=== PATIENT | male | born 1990 | race Caucasian/White ===

== ENCOUNTER 2017-02-04 14:08 | Emergency (ER) | payer SELFPAY ==
[2017-02-04 14:13] VITALS: BP 156/80; PULSE 77; RESP 12; TEMP 98.3; O2SAT 98
--- NOTE | 2017-02-04 15:03 | RADRPT ---
EXAM DATE/TIME: 02/04/2017 14:48 [place] COMPARISON: No previous studies available for comparison. INDICATIONS : Cough for 1 month. Coughing up black mucus for 1 month. MEDICAL HISTORY : None. SURGICAL HISTORY : None. ENCOUNTER: Initial ACUITY: 1 month PAIN SCORE: 0/10 LOCATION: Bilateral chest FINDINGS: PA and lateral views of the chest demonstrate the lungs to be symmetrically aerated without evidence of mass, infiltrate or effusion. The cardiomediastinal contours are unremarkable. Osseous structure s are intact. CONCLUSION: 1. No acute cardiopulmonary disease. Desmond Branch MD on February 04, 2017 at 15:01 Board Certified Radiologist. This report was verified electronically.
--- NOTE | 2017-02-04 15:29 | PD ---
HPI Chief Complaint: Cold / Flu Symptoms Time Seen by Provider: 15:18 Travel History International Travel<30 days: No Contact w/Intl Traveler<30days: No Traveled to known affect area: No History of Present Illness HPI 26-year-old male presents to emergency department complaining of cough, congestion, nasal congestion for approximately 1 month. States he is also wheezing and has sneezing. States he does have a productive cough, described as dark and green mucus. He does smoke approx 1PPD. He also has a history of asthma. He has not used any OTCs. 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 He has a childhood history of asthma but denies any other medical issues this time. He has been trying to quit smoking. Patient denies fever, chills, chest pain, shortness of breath, abdominal pain. PFSH Social History Tobacco Use: Yes (1PPD) Allergies-Medications (Allergen,Severity, Reaction): Coded Allergies: No Known Allergies (Unverified , 02/04/17) Reported Meds & Prescriptions Reported Meds & Active Scripts Active Tessalon Perles (Benzonatate) 100 Mg Cap 100 Mg PO TID PRN 5 Days Ventolin Hfa 18 GM Inh (Albuterol Sulfate) 90 Mcg/Act Aer 2 Puff INH Q4-6H PRN Medrol Dosepak (Methylprednisolone) 4 Mg Dspk 4 Mg PO DIRECTED Per Pharmacist direction Review of Systems Except as stated in HPI: all other systems reviewed are Neg Physical Exam Narrative GENERAL: Well-developed well-nourished in no apparent distress frequently coughing without production. SKIN: Focused skin assessment warm/dry. HEAD: Atraumatic. Normocephalic. EYES: Pupils equal and round. No scleral icterus. No injection or drainage. ENT: No nasal bleeding or discharge. Mucous membranes pink and moist. THROAT: No pharyngeal exudates, or tonsillar hypertrophy. Airway is patent. Mild irritation of the posterior pharynx. NECK: Trachea midline. No JVD. CARDIOVASCULAR: Regular rate and rhythm. No murmur appreciated. RESPIRATORY: No accessory muscle use. Expiratory wheezing present Breath sounds equal bilaterally. GASTROINTESTINAL: Abdomen soft, non-tender, nondistended. MUSCULOSKELETAL: No obvious deformities. No clubbing. No cyanosis. No edema. No CVA tenderness NEUROLOGICAL: Awake and alert. No obvious cranial nerve deficits. Motor grossly within normal limits. Normal speech. PSYCHIATRIC: Appropriate mood and affect; insight and judgment normal. Data Data Last Documented VS Vital Signs Date Time Temp Pulse Resp B/P (MAP) Pulse Ox O2 Delivery O2 Flow Rate FiO2 02/04/17 14:13 98.3 77 12 156/80 (105) 98 Orders Orders Chest, Pa & Lat (02/04/17 ) Ed Discharge Order (02/04/17 15:32) MDM Medical Decision Making Medical Screen Exam Complete: Yes Emergency Medical Condition: Yes Differential Diagnosis Laboratory infection versus allergic rhinitis vs post nasal drip vs allergic pharyngitis vs asthma Narrative Course 26-year-old male presents to emergency department complaining of cough, congestion, nasal congestion for approximately 1 month. States he is also wheezing and has sneezing. States he does have a productive cough, described as dark, nonbloody and green mucus. He does smoke approx 1PPD. He also has a history of asthma. He has not used any OTCs. 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 He has a childhood history of asthma but denies any other medical issues this time. He has been trying to quit smoking. Patient denies fever, chills, chest pain, shortness of breath, abdominal pain. Vital signs stable Chest x-ray clear His coughing is likely secondary to bronchospasm and smoking status We'll prescribe Medrol Dosepak, benzonatate for the evening, and albuterol for his wheezing. Advised patient to follow up with primary care physician. Counseling on smoking cessation Patient advised to return to ED if symptoms persist or worsen Diagnosis Primary Impression: Upper respiratory infection Qualified Codes: J06.9 - Acute upper respiratory infection, unspecified Referrals: Primary Care Physician Departure Forms: Tests/Procedures, Work Release Enter return to work date: Feb 06, 2017 Additional Instructions: Follow-up with your primary care physician within 2-3 days Take medication as prescribed Use an zbpt-jro-qebnjan antihistamine such as Claritin, Celia, or Zyrtec per package instructions daily for at least 7 days Stop smoking Scripts Benzonatate (Tessalon Perles) 100 Mg Cap 100 MG PO TID Y for COUGH for 5 Days, #15 CAP 0 Refills Prov: Mimi Bethea MD 02/04/17 Albuterol 18 GM Inh (Ventolin Hfa 18 GM Inh) 90 Mcg/Act Aer 2 PUFF INH Q4-6H Y for SHORTNESS OF BREATH, #1 INHALER 0 Refills Prov: Mimi Bethea MD 02/04/17 Methylprednisolone Dosepak (Medrol Dosepak) 4 Mg Dspk 4 MG PO DIRECTED, #1 DSPK 0 Refills Per Pharmacist direction Prov: Mimi Bethea MD 02/04/17 Disposition: 01 DISCHARGE HOME Condition: Stable Vanessa Centeno Feb 04, 2017 15:29
[2017-02-04] MEDS ORDERED: MEDR4PAK PO (15:30)
[2017-02-04] MEDS ORDERED: VENTAER INH (15:30)
[2017-02-04] MEDS ORDERED: BENZ100 PO (15:30)
== END 2017-02-04 15:47 | disposition home or self-care (01) ==
LOC: NEPD 14:08
DX: J06.9 Acute upper respiratory infection, unspecified (principal); J45.909 Unspecified asthma, uncomplicated; F17.210 Nicotine dependence, cigarettes, uncomplicated
CPT/HCPCS: 71020; 99284

== ENCOUNTER 2017-04-24 18:14 | Emergency (ER) | payer SELFPAY ==
[~2017-04-24] VITALS: Ht 167.6 cm; Wt 110.0 kg
[~2017-04-24 18:14] MED LIST: BENZ100 PO; MEDR4PAK PO; VENTAER INH
[2017-04-24 18:15] VITALS: BP 162/104; PULSE 99; RESP 16; TEMP 98.3; O2SAT 99
[2017-04-24] MEDS ORDERED: OSEL75 PO (22:11)
--- NOTE | 2017-04-24 22:12 | PD ---
HPI Chief Complaint: Cold / Flu Symptoms Time Seen by Provider: 22:02 Travel History International Travel<30 days: No Contact w/Intl Traveler<30days: No Traveled to known affect area: No History of Present Illness HPI 27-year-old male here for evaluation of flulike symptoms stating that he needs a work note because he missed work today because of his symptoms. His symptoms started yesterday with fever, cough, congestion. He smokes cigarettes and reports having some brownish sputum. He took some Mucinex at home. He has had some loose bowel movements. Denies vomiting or abdominal pain. No dyspnea. PFSH Social History Tobacco Use: Yes (1PPD) Allergies-Medications (Allergen,Severity, Reaction): Coded Allergies: No Known Allergies (Unverified , 02/04/17) Reported Meds & Prescriptions Reported Meds & Active Scripts Active Tessalon Perles (Benzonatate) 100 Mg Cap 100 Mg PO TID PRN 5 Days Ventolin Hfa 18 GM Inh (Albuterol Sulfate) 90 Mcg/Act Aer 2 Puff INH Q4-6H PRN Medrol Dosepak (Methylprednisolone) 4 Mg Dspk 4 Mg PO DIRECTED Per Pharmacist direction Review of Systems Except as stated in HPI: all other systems reviewed are Neg Physical Exam Narrative GENERAL: Well-developed, well-nourished, comfortable, no apparent distress. SKIN: Focused skin assessment warm/dry. No rash. HEAD: Atraumatic. Normocephalic. EYES: Pupils equal and round. No scleral icterus. No injection or drainage. ENT: No nasal bleeding or discharge. Mucous membranes pink and moist. Normal pharynx without erythema or exudates. Uvula is midline. No drooling or stridor. Normal phonation. Bilateral tympanic membrane and external auditory canals are normal. NECK: Trachea midline. No JVD. No nuchal rigidity. CARDIOVASCULAR: Regular rate and rhythm. RESPIRATORY: No accessory muscle use. Clear to auscultation. Breath sounds equal bilaterally. GASTROINTESTINAL: Abdomen soft, non-tender, nondistended. MUSCULOSKELETAL: No obvious deformities. No clubbing. No cyanosis. No edema. NEUROLOGICAL: Awake and alert. No obvious cranial nerve deficits. Motor grossly within normal limits. Normal speech. PSYCHIATRIC: Appropriate mood and affect; insight and judgment normal. Data Data Last Documented VS Vital Signs Date Time Temp Pulse Resp B/P (MAP) Pulse Ox O2 Delivery O2 Flow Rate FiO2 04/24/17 18:15 98.3 99 16 162/104 (123) 99 Orders Orders Oseltamivir (Tamiflu) (04/24/17 22:15) MDM Medical Decision Making Medical Screen Exam Complete: Yes Emergency Medical Condition: Yes Differential Diagnosis Influenza, URI, viral illness Narrative Course Vital signs reviewed. The patient is overall well-appearing. He is in no respiratory distress. His symptoms are consistent with the flu. Plan is to start him on Tamiflu. He will be given a work note as requested. He was advised to keep fever under control with Tylenol and ibuprofen and to stay hydrated with plenty of fluids. He was advised on when to return to the emergency department. He verbalizes understanding and agreement with plan. Diagnosis Primary Impression: Influenza-like illness Referrals: Primary Care Physician 3 days Additional Instructions: Follow-up with a primary care physician this week. Stay hydrated with plenty of fluids. Keep fever under control with Tylenol and ibuprofen. Return to the emergency department for worsening symptoms or any other concerns. Scripts Oseltamivir (Tamiflu) 75 Mg Cap 75 MG PO BID for Mgmt Viral Infection for 5 Days, #10 CAP 0 Refills Prov: Waylon Hoskins MD 04/24/17 Disposition: 01 DISCHARGE HOME Condition: Stable Waylon Hoskins MD Apr 24, 2017 22:11
[2017-04-24] MEDS ORDERED: OSELTAMIVIR PHOSPHATE 75 MG CAP PO ONE (22:15)
== END 2017-04-24 22:40 | disposition home or self-care (01) ==
LOC: NEPD 18:14
DX: J11.1 Influenza due to unidentified influenza virus with other respiratory manifestations (principal); F17.200 Nicotine dependence, unspecified, uncomplicated
CPT/HCPCS: 99283